=== PATIENT | female | born 1945 | race Caucasian/White ===

== ENCOUNTER 2019-08-17 17:05 | Emergency (ER) | payer MEDICARE ==
[~2019-08-17] VITALS: Ht 160 cm; Wt 90.0 kg
[~2019-08-17 17:05] MED LIST: ARTHRTS PAIN650 M1 PO; BACLOFEN20 MG PO; DICLOFENAC SODI75 MG PO; DICLOFENAC50 MG PO; FLEXERIL OR; HYDROCHLOROT25 MG PO; LORTAB5; NIACIN ER1000 MG; QVAR REDIH80 MCG/ACT; TRAMADOL HCL50 MG PO; ULTRAM50 M1 PO; VENTOLIN H108 MCG/AC IN; ZPAK PO
[2019-08-17] MEDS ORDERED: HYDROCO/APAP1 T13 PO (17:22)
[2019-08-17] MEDS ORDERED: LORTAB 1010 MG PO (17:41)
[2019-08-17] MEDS ORDERED: GABAPENTIN100 MG PO (17:42)
[2019-08-17] MEDS ORDERED: BUMETANIDE2 MG PO (17:43)
[2019-08-17] MEDS ORDERED: TAM75CAP PO (18:45)
[2019-08-17] MEDS ORDERED: ZPAK PO (18:45)
[2019-08-17 18:52] VITALS: BP 144/79
== END 2019-08-17 18:52 | disposition home or self-care (01) ==
LOC: ED 17:05
DX: J10.1 Influenza due to other identified influenza virus with other respiratory manifestations (principal); N18.3 Chronic kidney disease, stage 3 (moderate); J44.9 Chronic obstructive pulmonary disease, unspecified; F17.210 Nicotine dependence, cigarettes, uncomplicated

== ENCOUNTER 2022-01-24 16:09 | Emergency (ER) | payer MEDICARE ==
[~2022-01-24] VITALS: Ht 160 cm; Wt 87.5 kg
[~2022-01-24 16:09] MED LIST changes: +BUMETANIDE2 MG PO; +GABAPENTIN100 MG PO; +HYDROCO/APAP1 T13 PO; +LORTAB 1010 MG PO; +TAM75CAP PO
[2022-01-24 16:23] VITALS: BP 154/75
[2022-01-24 16:31] VITALS: BP 160/79
[2022-01-24 16:46] VITALS: BP 135/61
[2022-01-24] MEDS ORDERED: K-TAB20 MEQ (16:53)
[2022-01-24 16:54] LABS: HEMATOCRIT 44.9 % (37.0-47.0); HEMOGLOBIN 14.3 g/dl (12.0-16.0); IMMATURE GRANULOCYTES 0.1 % (0.0-5.0); MEAN CORPUSCULAR HGB 33.6 pG CALC (26.0-32.0); MEAN CORPUSCULAR HGB CONC 31.8 g/dL CAL (32.0-36.0); NEUT# 3.95 thou/uL (2.00-7.15); RED BLOOD COUNT 4.26 mill/uL (4.20-5.60); RED CELL DISTRI WIDTH 12.9 % (11.5-15.5)
[2022-01-24] MEDS ORDERED: BUMETANIDE2 MG PO (16:54)
[2022-01-24] MEDS ORDERED: DICLOFENAC SODI75 MG PO (16:54)
[2022-01-24] MEDS ORDERED: GABAPENTIN100 MG PO (16:55)
[2022-01-24] MEDS ORDERED: TIZANIDINE HCL4 M1 PO (16:55)
[2022-01-24] MEDS ORDERED: FLOVENT HF220 MCG/AC (16:56)
[2022-01-24] MEDS ORDERED: BACLOFEN20 MG PO (16:56)
[2022-01-24 17:01] VITALS: BP 136/72
[2022-01-24 17:01] LABS: MEAN CELL VOLUME 105.4 fL CALC (80.0-100.0)
[2022-01-24 17:12] LABS: ALBUMIN 3.9 g/dL (3.2-5.0); ALKALINE PHOSPHATASE 104 u/l (38-126); ANION GAP 13 (6-22 (CALC)); BILIRUBIN, TOTAL 0.4 mg/dL (0.0-1.4); BUN 24 mg/dL (8-23); BUN/CREATININE RATIO 21 (12-20 (CALC)); CARBON DIOXIDE 25 mmol/l (22-30); CHLORIDE 106 mmol/l (95-108); CREATININE 1.1 mg/dL (0.5-1.0); GFR 48 ML/MIN (>=60 (CALC)); GFR FOR AFR.AMER. 59 ML/MIN (>=60 (CALC)); POTASSIUM 4.8 mmol/l (3.5-5.1); SGOT/AST 20 u/l (9-36); SODIUM 138 mmol/l (137-146); TOTAL PROTEIN 6.5 g/dL (6.3-8.2)
[2022-01-24] MEDS ORDERED: CEPHALEXIN500 MG PO (18:00)
[2022-01-24 18:14] VITALS: BP 136/72
== END 2022-01-24 20:05 | disposition home or self-care (01) ==
LOC: ED 16:09
PROVIDERS: Family Medicine
DX: L03.115 Cellulitis of right lower limb (principal); I12.9 Hypertensive chronic kidney disease with stage 1 through stage 4 chronic kidney disease, or unspecified chronic kidney disease; N18.30 Chronic kidney disease, stage 3 unspecified; J44.9 Chronic obstructive pulmonary disease, unspecified; E66.9 Obesity, unspecified; F17.200 Nicotine dependence, unspecified, uncomplicated; Z20.822 Contact with and (suspected) exposure to COVID-19

== ENCOUNTER 2022-06-16 22:07 | Observation (INO) | payer MEDICARE ==
[~2022-06-16] VITALS: Ht 160 cm; Wt 81.0 kg
[~2022-06-16 22:07] MED LIST changes: +CEPHALEXIN500 MG PO; +FLOVENT HF220 MCG/AC; +K-TAB20 MEQ; +TIZANIDINE HCL4 M1 PO
--- NOTE | 2022-06-16 22:10 | NUR ---
PT FROM VEHICLE TO ROOM 2 FOR TRIAGE. TRIAGE AT BEDSIDE.
[2022-06-16 22:46] VITALS: BP 163/94
[2022-06-16 23:01] VITALS: BP 168/88
--- NOTE | 2022-06-16 23:15 | NUR ---
PT RESTING. RELATIVE AT BEDSIDE.
[2022-06-16 23:45] LABS: HEMATOCRIT 42.4 % (37.0-47.0); HEMOGLOBIN 13.6 g/dl (12.0-16.0); IMMATURE GRANULOCYTES 0.2 % (0.0-5.0); MEAN CELL VOLUME 104.4 fL CALC (80.0-100.0); MEAN CORPUSCULAR HGB 33.5 pG CALC (26.0-32.0); MEAN CORPUSCULAR HGB CONC 32.1 g/dL CAL (32.0-36.0); NEUT# 4.05 thou/uL (2.00-7.15); RED BLOOD COUNT 4.06 mill/uL (4.20-5.60); RED CELL DISTRI WIDTH 14.2 % (11.5-15.5)
[2022-06-16 23:56] LABS: ALBUMIN 3.7 g/dL (3.2-5.0); ALKALINE PHOSPHATASE 98 u/l (38-126); ANION GAP 12 (6-22 (CALC)); BILIRUBIN, TOTAL 0.5 mg/dL (0.0-1.4); BUN 20 mg/dL (8-23); BUN/CREATININE RATIO 24 (12-20 (CALC)); CARBON DIOXIDE 27 mmol/l (22-30); CHLORIDE 103 mmol/l (95-108); CREATININE 0.8 mg/dL (0.5-1.0); GFR FOR AFR.AMER. > 60 ML/MIN (>=60 (CALC)); GFR OTHER RACES > 60 ML/MIN (>=60 (CALC)); SGOT/AST 24 u/l (9-36); SODIUM 137 mmol/l (137-146); TOTAL PROTEIN 6.2 g/dL (6.3-8.2)
[2022-06-17 00:05] LABS: POTASSIUM 5.3 mmol/l (3.5-5.1)
[2022-06-17 00:09] LABS: MYOGLOBIN 81 ng/mL (0 - 62)
[2022-06-17] MEDS ORDERED: LOSARTAN POTASS25 MG PO (01:51)
--- NOTE | 2022-06-17 03:05 | NUR ---
REPORT TO DUSTIN/MED-SUR[facility]
--- NOTE | 2022-06-17 03:32 | NUR ---
PATIENT ADMITTED TO ROOM 261. AMBULATED TO BED WITH SUPERVISION USING A WALKER. PATIENT ALERT AND ABLE TO MAKE NEEDS KNOWN. PATIENT DOES APPEAR TO GET ANXIOUS AT TIMES BUT CALMS DOWN AFTER STAFF SPEAKS WITH HER. PATIENT ORIENTED TO ROOM, CALL LIGHT AND SURROUNDINGS. ASSESSMENT COMPLETE. SOB ON EXERTION. NO COMPLAINTS OF CHEST PAIN AT THIS TIME. DRESSINGS TO BLE FROM HOME. BED REMAINS IN LOW POSITION. CALL LIGHT IN REACH. BED ALARM ACTIVE FOR SAFETY. FRESH WATER AT BEDSIDE.
--- NOTE | 2022-06-17 03:38 | NUR ---
PT TO FLOOR VIA STRETCHER. PT HAD MONITOR/O2. BELONGINGS WITH PT.
[2022-06-17 03:46] VITALS: BP 178/79
[2022-06-17 07:00] VITALS: BP 174/71
[2022-06-17 09:07] VITALS: BP 157/64
--- NOTE | 2022-06-17 09:10 | NUR ---
PT RESTING IN SEMI FOWLERS POSITION. PT A/OX3. RESPIRATIONS EVEN AND UNLABORED ON ROOM AIR. . HEART RHYTHM NORMAL WITH TELE IN PLACE . BOWEL SOUNDS ACTIVE. #20G LAC PATENT. SKIN INTACT. REDNESS NOTED TO BLE, PT STATES IT IS CELLULITIS THAT SHE HAS BEEN HAVING TREATED. DRESSING TO BLE REMAINS CDI. REDNESS NOTED TO ABD FOLD. SKIN INTACT. PT DENIES OF ANY NEEDS AT THIS TIME. PT EXPRESSES WANTS TO GO HOME. MD TO BE AWARE. DENIES OF ANY NEEDS. ALL SAFTEY PRECAUTIONS ARE IN PLACE WITH CALL LIGHT IN REACH
--- NOTE | 2022-06-17 09:10 | NUR ---
PT RESTING IN SEMI FOWLERS POSITION. PT A/OX3. RESPIRATIONS EVEN AND UNLABORED ON ROOM AIR. LUNG SOUNDS CLEAR. HEART RHYTHM NORMAL WITH TELE IN PLACE . BOWEL SOUNDS ACTIVE. #20G LAC PATENT. SKIN INTACT. REDNESS NOTED TO BLE, PT STATES IT IS CELLULITIS THAT SHE HAS BEEN HAVING TREATED. DRESSING TO BLE REMAINS CDI. REDNESS NOTED TO ABD FOLD. SKIN INTACT. PT DENIES OF ANY NEEDS AT THIS TIME. PT EXPRESSES WANTS TO GO HOME. MD TO BE AWARE. DENIES OF ANY NEEDS. ALL SAFTEY PRECAUTIONS ARE IN PLACE WITH CALL LIGHT IN REACH
--- NOTE | 2022-06-17 10:28 | NUR ---
DR GAMEZ AT BEDSIDE
[2022-06-17 11:15] VITALS: BP 162/70
[2022-06-17] MEDS ORDERED: NYSTATI1 TOP (11:27)
--- NOTE | 2022-06-17 12:03 | NUR ---
PT RESTING IN SEMI FOLWERS POSITION. RESPIRATIONS EVEN AND UNLABORED ON ROOM AIR. TELE IN PLACE. IV PATENT. PT INFORMED OF DC. VERBLAIZED UNDERSTANDING. ALL SAFTEY PRECAUTOINS IN PLACE
--- NOTE | 2022-06-17 12:40 | NUR ---
PT EDUCATED IN DC INSTRUCTIONS AND NEW MEDICATIONS. PT VERBLAIZED UNDERSTANDING. NYSTATIN APPLIED TO AFFECTED AREA AT THIS TIME. IV REMOVED WITH CATH INTACT. TELE REMOVED, ER INFORMED. WAITING FOR TRANSPORTATION
--- NOTE | 2022-06-17 14:00 | NUR ---
Discharge instructions given. Patient verbalizes understanding of same. Discharged in stable condition via Wheelchair to Home with staff. All belongings sent with pt.
== END 2022-06-17 14:00 | disposition home or self-care (01) ==
LOC: ED 22:07 → ED-I 06-17 01:08 → ED 06-17 01:16 → MS2 06-17 01:17
PROVIDERS: Emergency Medicine; ADMIT Internal Medicine; ATTEND Internal Medicine
DX: R07.2 Precordial pain (principal); I12.9 Hypertensive chronic kidney disease with stage 1 through stage 4 chronic kidney disease, or unspecified chronic kidney disease; N18.30 Chronic kidney disease, stage 3 unspecified; J44.9 Chronic obstructive pulmonary disease, unspecified; L30.4 Erythema intertrigo; B37.2 Candidiasis of skin and nail; F17.200 Nicotine dependence, unspecified, uncomplicated; Z20.822 Contact with and (suspected) exposure to COVID-19

== ENCOUNTER 2022-08-09 06:42 | Inpatient (IN) | payer MEDICARE ==
[~2022-08-09] VITALS: Ht 160 cm; Wt 80.0 kg
[~2022-08-09 06:42] MED LIST changes: +LOSARTAN POTASS25 MG PO; +NYSTATI1 TOP
[2022-08-09 07:07] LABS: HEMATOCRIT 44.6 % (37.0-47.0); HEMOGLOBIN 14.1 g/dl (12.0-16.0); IMMATURE GRANULOCYTES 0.6 % (0.0-5.0); MEAN CELL VOLUME 107.5 fL CALC (80.0-100.0); MEAN CORPUSCULAR HGB CONC 31.6 g/dL CAL (32.0-36.0); NEUT# 5.7 thou/uL (2.00-7.15); RED BLOOD COUNT 4.15 mill/uL (4.20-5.60); RED CELL DISTRI WIDTH 15.1 % (11.5-15.5)
[2022-08-09 07:28] LABS: ALBUMIN 3.7 g/dL (3.2-5.0); ALKALINE PHOSPHATASE 105 u/l (38-126); BILIRUBIN, TOTAL 0.7 mg/dL (0.0-1.4); BUN 24 mg/dL (8-23); BUN/CREATININE RATIO 29 (12-20 (CALC)); CARBON DIOXIDE 25 mmol/l (22-30); CHLORIDE 107 mmol/l (95-108); CPK 111 u/l (30-165); CREATININE 0.8 mg/dL (0.5-1.0); GFR FOR AFR.AMER. > 60 ML/MIN (>=60 (CALC)); GFR OTHER RACES > 60 ML/MIN (>=60 (CALC)); MAGNESIUM 2.2 mg/dL (1.6-2.3); SGOT/AST 26 u/l (9-36); SODIUM 139 mmol/l (137-146)
[2022-08-09 07:36] LABS: ANION GAP 12 (6-22 (CALC)); MYOGLOBIN 190 ng/mL (0 - 62); POTASSIUM 5.3 mmol/l (3.5-5.1)
[2022-08-09 07:59] LABS: TSH, 3RD GENERATION 1.03 uIU/mL (0.47 - 4.68)
[2022-08-09 17:04] VITALS: BP 135/84
[2022-08-09 19:10] VITALS: BP 142/70
[2022-08-09 19:43] LABS: URINE BILIRUBIN - DIPSTICK NEGATIVE (NEGATIVE); URINE BLOOD DIPSTICK NEGATIVE (NEGATIVE); URINE COLOR YELLOW; URINE GLUCOSE - DIPSTICK NEGATIVE (NEGATIVE); URINE KETONE TRACE mg/dL (NEGATIVE); URINE LEUK ESTERASE NEGATIVE (NEGATIVE); URINE PH 5.5 (4.5-8.0); URINE PROTEIN - DIPSTICK TRACE mg/dL (NEG-TRACE); URINE SPECIFIC GRAVITY >=1.030; URINE UROBILINOGEN - DIPSTICK 0.2 E.U./dL (0.2)
[2022-08-09 19:46] LABS: URINE NITRITE - DIPSTICK NEGATIVE (Negative)
[2022-08-10] VITALS (8 sets, daily range): BP systolic 135–162; BP diastolic 59–88
[2022-08-10 05:56] LABS: HEMATOCRIT 45.2 % (37.0-47.0); HEMOGLOBIN 14.4 g/dl (12.0-16.0); MEAN CELL VOLUME 106.1 fL CALC (80.0-100.0); MEAN CORPUSCULAR HGB 33.8 pG CALC (26.0-32.0); MEAN CORPUSCULAR HGB CONC 31.9 g/dL CAL (32.0-36.0); RED BLOOD COUNT 4.26 mill/uL (4.20-5.60); RED CELL DISTRI WIDTH 14.4 % (11.5-15.5)
[2022-08-10 06:15] LABS: BUN 28 mg/dL (8-23); BUN/CREATININE RATIO 36 (12-20 (CALC)); CARBON DIOXIDE 25 mmol/l (22-30); CHLORIDE 105 mmol/l (95-108); CREATININE 0.8 mg/dL (0.5-1.0); GFR FOR AFR.AMER. > 60 ML/MIN (>=60 (CALC)); GFR OTHER RACES > 60 ML/MIN (>=60 (CALC)); SODIUM 139 mmol/l (137-146)
[2022-08-10 06:21] LABS: ANION GAP 15 (6-22 (CALC)); POTASSIUM 5.8 mmol/l (3.5-5.1)
[2022-08-11 05:27] VITALS: BP 135/66
[2022-08-11 05:53] LABS: HEMATOCRIT 39.9 % (37.0-47.0); IMMATURE GRANULOCYTES 0.1 % (0.0-5.0); MEAN CELL VOLUME 104.2 fL CALC (80.0-100.0); MEAN CORPUSCULAR HGB 33.9 pG CALC (26.0-32.0); MEAN CORPUSCULAR HGB CONC 32.6 g/dL CAL (32.0-36.0); NEUT# 7.72 thou/uL (2.00-7.15); RED BLOOD COUNT 3.83 mill/uL (4.20-5.60); RED CELL DISTRI WIDTH 14.6 % (11.5-15.5)
[2022-08-11 06:45] LABS: ALBUMIN 3.3 g/dL (3.2-5.0); ALKALINE PHOSPHATASE 87 u/l (38-126); BUN 33 mg/dL (8-23); BUN/CREATININE RATIO 40 (12-20 (CALC)); CARBON DIOXIDE 26 mmol/l (22-30); CHLORIDE 102 mmol/l (95-108); CREATININE 0.8 mg/dL (0.5-1.0); GFR FOR AFR.AMER. > 60 ML/MIN (>=60 (CALC)); GFR OTHER RACES > 60 ML/MIN (>=60 (CALC)); SGOT/AST 22 u/l (9-36); SODIUM 134 mmol/l (137-146); TOTAL PROTEIN 5.5 g/dL (6.3-8.2)
[2022-08-11 06:50] LABS: ANION GAP 12 (6-22 (CALC)); BILIRUBIN, TOTAL 0.4 mg/dL (0.0-1.4); POTASSIUM 5.5 mmol/l (3.5-5.1)
[2022-08-11 07:27] VITALS: BP 133/72
[2022-08-11] MEDS ORDERED: PREDNISONE50 MG PO (10:46)
[2022-08-11 11:15] VITALS: BP 134/63
== END 2022-08-11 14:15 | disposition home health service (06) | DRG 192 ==
LOC: ED 06:42 → ED-I 12:00 → ED 12:31 → MS2 12:32
PROVIDERS: Family Medicine; Nurse Practitioner Family; ADMIT Internal Medicine; ATTEND Internal Medicine
DX: J44.1 Chronic obstructive pulmonary disease with (acute) exacerbation (principal); I12.9 Hypertensive chronic kidney disease with stage 1 through stage 4 chronic kidney disease, or unspecified chronic kidney disease; N18.32 Chronic kidney disease, stage 3b; S71.112A Laceration without foreign body, left thigh, initial encounter; S41.111A Laceration without foreign body of right upper arm, initial encounter; S41.112A Laceration without foreign body of left upper arm, initial encounter; S00.83XA Contusion of other part of head, initial encounter; M19.90 Unspecified osteoarthritis, unspecified site; M54.50 Low back pain, unspecified; G89.29 Other chronic pain; F17.200 Nicotine dependence, unspecified, uncomplicated; W18.30XA Fall on same level, unspecified, initial encounter; Y92.002 Bathroom of unspecified non-institutional (private) residence as the place of occurrence of the external cause; Z91.81 History of falling; Z23 Encounter for immunization; Z20.822 Contact with and (suspected) exposure to COVID-19
CPT/HCPCS: J1650

== ENCOUNTER 2024-09-29 07:22 | Emergency (ER) | payer MEDICARE ==
[~2024-09-29] VITALS: Ht 160 cm; Wt 56.6 kg
[2024-09-29] VITALS (12 sets, daily range): BP systolic 139–173; BP diastolic 90–110
[~2024-09-29 07:22] MED LIST changes: +DOXYCYCL HYC100 M4 PO; +MEDDOSEPAK PO; +PREDNISONE20 MG PO; +PREDNISONE50 MG PO; +VENTOLIN HFA108 MCG IN
[2024-09-29] MEDS ORDERED: methylPREDNISolone SODIUM SUCC 125 MG/2 ML SDV IV ONE (07:40)
[2024-09-29] MEDS ORDERED: IPRATROPIUM-Albuterol 0.5MG-2.5MG/3 ML NEB ONE (07:40)
[2024-09-29 08:04] LABS: BASO% 0.9 % (0-3); EOS% 6.5 % (0-8); HEMATOCRIT 44.3 % (37.0-47.0); HEMOGLOBIN 13.7 g/dl (12.0-16.0); IMMATURE GRANULOCYTES 0.2 % (0.0-5.0); LYMPH% 15.7 % (15-41); MEAN CELL VOLUME 102.3 fL CALC (80.0-100.0); MEAN CORPUSCULAR HGB 31.6 pG CALC (26.0-32.0); MEAN CORPUSCULAR HGB CONC 30.9 g/dL CAL (32.0-36.0); MONO% 15.3 % (2-13); NEUT# 2.65 thou/uL (2.00-7.15); NEUT% 61.4 % (42-76); RED BLOOD COUNT 4.33 mill/uL (4.20-5.60); RED CELL DISTRI WIDTH 14.4 % (11.5-15.5)
[2024-09-29 08:21] LABS: ALBUMIN 3.6 g/dL (3.2-5.0); ALKALINE PHOSPHATASE 113 u/l (38-126); ANION GAP 10 (6-22 (CALC)); BILIRUBIN, TOTAL 0.6 mg/dL (0.02-1.3); BUN 38 mg/dL (8-23); BUN/CREATININE RATIO 27 (12-20 (CALC)); CARBON DIOXIDE 29 mmol/l (22-30); CHLORIDE 104 mmol/l (95-108); CREATININE 1.4 mg/dL (0.5-1.0); ESTIMATED GFR 39 ML/MIN (>=90 (CALC)); LIPASE 83 u/l (23-300); MAGNESIUM 2.2 mg/dL (1.6-2.3); POTASSIUM 5.1 mmol/l (3.5-5.1); SGOT/AST 42 u/l (9-36); SODIUM 139 mmol/l (137-146)
[2024-09-29 08:25] LABS: PROTHROMBIN TIME 10.4 SECONDS (9.0-12.5)
[2024-09-29 08:57] LABS: URINE BILIRUBIN - DIPSTICK Negative (NEGATIVE); URINE BLOOD DIPSTICK Negative (NEGATIVE); URINE GLUCOSE - DIPSTICK Negative (NEGATIVE); URINE KETONE Negative (NEGATIVE); URINE LEUK ESTERASE Negative (NEGATIVE); URINE NITRITE - DIPSTICK Negative (Negative); URINE PROTEIN - DIPSTICK 100 mg/dL (NEG-TRACE); URINE UROBILINOGEN - DIPSTICK 0.2 E.U./dL (0.2)
[2024-09-29] MEDS ORDERED: oxyCODONE 10MG/APAP 325 MG 1 COMBO TAB PO ONE (09:10)
[2024-09-29 09:14] LABS: URINE COLOR Yellow
[2024-09-29 09:17] LABS: URINE SQUAMOUS EPITHELIAL CELL MODERATE EPI/hpf (0-FEW)
[2024-09-29 09:19] LABS: URINE BACTERIA FEW hpf; URINE WBC 0-2 WBC/hpf (0-5)
[2024-09-29] MEDS ORDERED: SODIUM CHLORIDE 0.9% 1,000 ML IV ONE (10:30)
== END 2024-09-29 10:55 | disposition left against medical advice (07) ==
LOC: ED 07:22
PROVIDERS: Family Medicine
DX: J44.1 Chronic obstructive pulmonary disease with (acute) exacerbation (principal); R53.1 Weakness; N28.9 Disorder of kidney and ureter, unspecified; G89.29 Other chronic pain; I12.9 Hypertensive chronic kidney disease with stage 1 through stage 4 chronic kidney disease, or unspecified chronic kidney disease; N18.30 Chronic kidney disease, stage 3 unspecified; R64 Cachexia; F17.200 Nicotine dependence, unspecified, uncomplicated; I48.20 Chronic atrial fibrillation, unspecified; Z79.891 Long term (current) use of opiate analgesic; Z20.822 Contact with and (suspected) exposure to COVID-19; Z53.29 Procedure and treatment not carried out because of patient's decision for other reasons; Z99.81 Dependence on supplemental oxygen

== ENCOUNTER 2024-10-01 21:20 | Emergency (ER) | payer MEDICARE ==
[~2024-10-01] VITALS: Ht 160 cm; Wt 50.0 kg
[2024-10-01] MEDS ORDERED: HYDROcodone 5 MG/Acetaminophen 325 MG/COMBO PO ONE (22:20)
[2024-10-01] MEDS ORDERED: Diph, Acellular Pertussis, Tet 0.5 ML/VIAL (Tdap) SDV IM ONE (22:20)
[2024-10-02] VITALS (17 sets, daily range): BP systolic 92–162; BP diastolic 54–110
[2024-10-02] MEDS ORDERED: ACETAMINOPHEN 500 MG TAB PO ONE (01:30)
[2024-10-02] MEDS ORDERED: CEPHALEXIN MONOHYDRATE 500 MG/CAP PO ONE (01:30)
[2024-10-02] MEDS ORDERED: cloNIDine HCL 0.1 MG/TAB PO ONE (01:30)
[2024-10-02] MEDS ORDERED: NAPROXEN 250 MG/TAB PO ONE (01:30)
[2024-10-02] MEDS ORDERED: CEFDINIR300 MG PO (01:31)
[2024-10-02] MEDS ORDERED: ONDANSETRON HCl 4 MG/2 ML SDV IV ONE (02:40)
[2024-10-02] MEDS ORDERED: MORPHINE SULFATE 4 MG/ML VIAL IV ONE (02:40)
== END 2024-10-02 08:30 | disposition home or self-care (01) ==
LOC: ED 21:20
DX: S81.812A Laceration without foreign body, left lower leg, initial encounter (principal); M25.562 Pain in left knee; I12.9 Hypertensive chronic kidney disease with stage 1 through stage 4 chronic kidney disease, or unspecified chronic kidney disease; N18.30 Chronic kidney disease, stage 3 unspecified; I48.91 Unspecified atrial fibrillation; J44.89 Other specified chronic obstructive pulmonary disease; F17.200 Nicotine dependence, unspecified, uncomplicated; Y92.59 Other trade areas as the place of occurrence of the external cause; W19.XXXA Unspecified fall, initial encounter
CPT/HCPCS: 90715; J2405